=== PATIENT | male | born 1990 | race Caucasian/White ===

== ENCOUNTER 2025-04-29 17:39 | Emergency (ER) | payer OTHER, SELFPAY ==
--- OUTSIDE RECORDS SUMMARY | 2025-04-29 17:42 | XMS_ITS | Clinical Summary ---
Author Organization [facility] Address [address] [place] [address] Care Team Providers Care Planer Chain Offbearer Name Role Phone Sree Borjas P.A.-C. Primary Care Provider Source Comments Patient records contain information from all sites at [facility]. For routine questions regarding patient records, call [phone] during business hours, M-F 8:00 AM - 5:00 PM Central Time. Record requests for emergency care only can be directed to [phone] at any time.[facility] Allergies Active Allergy Reactions Criticality Noted Date Comments Lactose GI intolerance 04/21/2020 Medications * This document contains information received from the source organization and may not represent a complete record from that organization. No known medications Active Problems No known active problems Encounters * This document contains information received from the source organization and may not represent a complete record from that organization. Date Type Department Care Team Description 03/11/2025 Results Follow-Up Department of Family Medicine, [facility], in [place] [address] [place] [phone] Bebeto Fernández D.O. Home sleep apnea test (HSAT) 02/25/2025 7:50 AM CDT - 02/25/2025 11:59 PM CDT Hospital Encounter Department of Pulmonary Medicine in [place], [place] [address] [place] [phone] Bebeto Fernández D.O. Snoring Discharge Disposition: Home or Self Care 02/19/2025 3:20 PM CDT Telemedicine Department of [facility] Medicine, [facility], in [place], [place] [address] [place] [phone] Bebeto Fernández D.O. Snoring (Primary Dx) Discharge Disposition: Home or Self Care 02/19/2025 Clinical Communication Department of [facility] Medicine, [facility], in [place], [place] [address] [place] [phone] Sree Borjas P.A.-C. from Last 3 Months Immunizations Immunization Administration Dates Next Due Adenovirus 11/01/2011 Anthrax 01/05/2014, 4,12/23/2012,2012 HepA / HepB 06/30/2012,12/07/2011,11/01/2011 IPV 12/07/2011 Influenza, Injectable, Quadrivalent 04/16/2018 JE-VC (IXIARO) 12/08/2013,08/27/2012,07/29/2012 MCV4 (Menactra)(Discontinued) 11/01/2011 MMRV 12/07/2011 Smallpox 06/30/2012 Tdap 04/15/2020,11/01/2011 TyVi (inj) 07/29/2012 YF 12/07/2011 influenza LAIV (Nasal) (2 ye ars through 49 years) 02/15/2014,01/22/2013 influenza trivalent LAIV (Na isaias) (2 years through 49 years) 03/14/2012 influenza trivalent vaccine (6 months and older)(PF) 11/01/2011 influenza vaccine quad (FLUZONE/FLUARIX) (6 months and older)(PF) 04/15/2020 Family History Medical History Relation Name Comments Coronary artery disease Father Ishan Leal Diabetes Father Ishan Leal Myasthenia gravis Father Ishan Leal Obesity Father Ishan Leal Sleep apnea Father Ishan Leal Coronary artery disease Mother Sheila Leal Colon cancer Paternal Grandmother Guillermina Leal d before i was born. Relation Name Status Comments Father Ishan Leal Alive Mother Sheila Leal Alive Paternal Grandmother Guillermina Leal Alive Social History Tobacco Use Types Packs/Day Years Used Date Smoking Tobacco: Never Passive Smoke Exposure: Never Smokeless Tobacco: Never Alcohol Use Standard Drinks/Week Comments Not Currently 0 (1 standard drink = 0.6 oz pure alcohol) I've never been a big alcohol drinker but I haven't had a drink in 5 years. [facility] Utilities Answer Date Recorded In the past [address] [facility] [employer], gas, oil, or water [employer] threatened to shut off services in your home? No 08/20/2024 Humiliation, Afraid, Rape, and Kick questionnair e Answer Date Recorded Within the last year, have y ou been afraid of your partner or ex-partner? No 04/15/2020 Within the last year, have y ou been humiliated or emotionally abused in other ways by your partner or ex-partner? No Within the last year, have y ou been kicked, hit, slapped, or otherwise physically hurt by your partner or ex-partner? No 04/15/2020 Within the last year, have y ou been raped or forced to have any kind of sexual activity by your partner or ex-partner? No 04/15/2020 Hunger Vital Sign Answer Date Recorded Within the past 12 months, y ou worried that your food would run out before you got the money to buy more. Never true 08/21/19 25 Within the past 12 months, t he food you bought just didn't last and you didn't have money to get more. Never true 08/20/2024 PRAPARE - Transportation Answer Date Re corded In the past 12 months, has l ack of transportation kept you from medical appointments or from getting medications? No 08/02 In the past 12 months, has l ack of transportation kept you from meetings, work, or from getting things needed for daily living? No 08/20/2024 Housing Stability Answer Date Recorded What is your living situation today? I have a [facility] place to live 08/20/2024 Education Answer Date Recorded What is the highest level of school you have completed or the highest degree you have received? Associate degree: occupational, technical, or vocational program 04/15/2020 Sex and Gender Information Value Date Recorded Sex Assigned at Male 06/12/2021 8:28 AM COMMERCIAL SINGER Legal Sex Male 11:12 PM CDT Gender Identity Male 04/16/2020 9:28 PM COMMERCIAL SINGER Sexual Orientation Straight 04/16/2020 9: 28 PM COMMERCIAL SINGER Last Filed Vital Signs Vital Sign Reading Time Taken Comments Blood Pressure 135/81 11/13/2024 4:06 PM CDT Pulse 76 11/13/2024 4:06 PM CDT Temperature 36.1 C (97 F) 07/09/2024 10:21 AM COMMERCIAL SINGER Respiratory Rate 20 07/09/2024 10:21 AM COMMERCIAL SINGER Oxygen Saturation - - Inhaled Oxygen Concentration - - Weight 104 kg (229 lb 8 oz) 11/13/2024 4:06 PM C DT Height 180.5 cm (5' 11.06) 11/13/2024 4:06 PM C DT Body Mass Index 31.95 11/13/2024 4:06 PM CDT Plan of Treatment Health Maintenance Due Date Last Done Comments HIV Screening 1991 Hepatitis C Screening 1991 IPV Vaccines (2 of 3 - Adult catch-up series) 01/04/2012 12/07/2011 HPV Vaccines (1 - 3-dose SCDM series) 2018 COVID-19 Vaccine ( - 2024- season) 2025 Influenza Vaccine (#1) 2025 , 04/16/2018, 02/15/2014, Additional history exists DTaP,Tdap,and Td Vaccines (3 - Td or Tdap) 04/15/2030 04/15/2020, 11/01/2011 Hepatitis A Vaccines Completed 06/30/2012, 12/07/2011, 11/01/2011 Hepatitis B Vaccines Completed 06/30/2012, 12/07/2011, 11/01/2011 Orthopoxvirus Vaccine Completed 06/30/2012 Depression Screening (Annual PHQ-2) Completed 07/09/2024, 07/09/2024 Pneumococcal vaccine (0-49 years) Aged Out No longer eligible based on patient's age to complete this topic Procedures Procedure Name Priority Date/Time Associated Diagnosis Comments HOME SLEEP APNEA TEST (HSAT) Routine 02/25/2025 11:05 AM CDT Snoring from Last 3 Months Results * Home sleep apnea test (HSAT) (02/25/2025 11:05 AM CDT) Narrative ONBASE - 03/08/2025 2:58 PM CDT Summary: Home sleep apnea test was performed utilizing the WatchPAT device. The total recording time was 7 hours 59 minutes with an estimated total sleep time of 7 hours 6 minutes. The patient slept in all positions The total recording time was 7 hours 59 minutes with an estimated total sleep time of 7 hours 6 minutes. The overall pAHI 4% was 1 per hour. The pRDI was 7 per hour. The oxygen saturation leelee reached 90%. The mean oxygen saturation was normal at 94%. Snoring greater 40 dB was heard 45% of the time. Clinical interpretation: Primary snoring. Clinical recommendation: If the clinical suspicion for sleep disordered breathing remains high, consideration could be given to sleep medicine consultation and in laboratory overnight polysomnography study as home sleep apnea test could underestimate mild sleep disordered breathing. Bebeto Fernández D.O. SLEEP CENTER ORDERABLES Fi nal Result Performing Organization Address [facility] Co de Phone Number ONBASE NA from Last 3 Months Insurance [facility] Care Teams Planer Chain Offbearer Relationship Specialty Start Date End Date Sree Borjas P.A.-C. [address] [place] [phone] PCP - General Family Medicine 04/15/20
--- OUTSIDE RECORDS SUMMARY | 2025-04-29 17:42 | XMS_ITS | Encounter Summary ---
Author Organization [facility] Address [address] [place] [address] Care Team Providers Care Biology Instructor Name Role Phone Sree Borjas-CAnupama Primary Care Provider Encounter Details Date Type Department Care Team (Late st Contact Info) Description 02/19/2025 Clinical Communication Department of Family Medicine, [facility], in [place], [place] [address] [place] [phone] Sree Borjas P.A.-C. [address] [place] [phone] Social History Tobacco Use Types Packs/Day Years Used Date Smoking Tobacco: Never Passive Smoke Exposure: Never Smokeless Tobacco: Never Alcohol Use Standard Drinks/Week Comments Not Currently 0 (1 standard drink = 0.6 oz pure alcohol) I've never been a big alcohol drinker but I haven't had a drink in 5 years. [facility] Utilities Answer Date Recorded In the past 12 months has [employer], gas, oil, or water [employer] threatened to shut off services in your [...] your living situation today? I have a [facility] place to live 08/20/2024 Education Answer Date Recorded What is the highest level of school you have completed or the highest degree you have received? Associate degree: occupational, technical, or vocational program 04/15/2020 Sex and Gender Information Value Date Recorded Sex Assigned at Male 06/12/2021 8:28 AM RELATIONS MANAGER Legal Sex Male 11:12 PM CDT Gender Identity Male 04/16/2020 9:28 PM RELATIONS MANAGER Sexual Orientation Straight 04/16/2020 9: 28 PM RELATIONS MANAGER documented as of this encounter Miscellaneous Notes * Telephone Encounter - Lashae Hernández R.N. - 02/19/2025 11:23 AM CDT Left detailed message for patient to return call to clinic. Does the patient need to speak to nursing? no Action needed: Please assist patient in scheduling with PCP to discuss referral for sleep medicine. documented in this encounter Plan of Treatment Not on file documented as of this encounter Visit Diagnoses Not on filedocumented in this encounter Care Teams Biology Instructor Relationship Specialty Start Date End Date Sree Borjas P.A.-C. [address] [place] [phone] PCP - General Family Medicine 04/15/20 documented as of this encounter
--- OUTSIDE RECORDS SUMMARY | 2025-04-29 17:42 | XMS_ITS | Encounter Summary ---
Author Organization [facility] Address [address] [place] [id number] Care Team Providers Care Geological Aide Name Role Phone Sree Borjas P.A.-C. Primary Care Provider Encounter Details Date Type Department Care Team (Late st Contact Info) Description 03/11/2025 Results Follow-Up Department of Family Medicine, [facility], in [address] [phone] Bebeto Fernández D.O. [address] [place] [phone] Home sleep apnea test (HSAT) Social History Tobacco Use Types Packs/Day Years Used Date Smoking Tobacco: Never Passive Smoke Exposure: Never Smokeless Tobacco: Never Alcohol Use Standard Drinks/Week Comments Not Currently 0 (1 standard drink = 0.6 oz pure alcohol) I've never been a big alcohol drinker but I haven't had a drink in 5 years. [facility] Utilities Answer Date Recorded In the past 12 months has [employer], gas, oil, or water [employer] threatened to shut off services in your [...] your living situation today? I have a [facility] place to live 08/20/2024 Education Answer Date Recorded What is the highest level of school you have completed or the highest degree you have received? Associate degree: occupational, technical, or vocational program 04/15/2020 Sex and Gender Information Value Date Recorded Sex Assigned at Male 06/12/2021 8:28 AM CHEMISTRY QUALITY CONTROL TECHNICIAN Legal Sex Male 11:12 PM CDT Gender Identity Male 04/16/2020 9:28 PM CHEMISTRY QUALITY CONTROL TECHNICIAN Sexual Orientation Straight 04/16/2020 9: 28 PM CHEMISTRY QUALITY CONTROL TECHNICIAN documented as of this encounter Plan of Treatment Not on file documented as of this encounter Visit Diagnoses Not on filedocumented in this encounter Care Teams Geological Aide Relationship Specialty Start Date End Date Sree Borjas P.A.-C. YULI: [phone] [address] [place] [phone] PCP - General Family Medicine 04/15/20 documented as of this encounter
--- OUTSIDE RECORDS SUMMARY | 2025-04-29 17:42 | XMS_ITS | Clinical Summary ---
Author Organization [facility] Address [address] [place] [address] Care Team Providers Care Business Professor Name Role Phone Pcp, No Primary Care Provider Unavailabl e Allergies No known active allergies Medications methylPREDNISolone (Medrol (Avila)) 4 mg tabletIndications:Pain of right thumb,Sprain of metacarpophalangeal (MCP) joint of right thumb, initial encounter,Tendinitis of thumb,Right lateral epicondylitis Take by mouth as instructed per packaging. 21 Tablet 01/13/20 25 Active durable medical equipment (DME)Indications:Pain of right thumb,Sprain of metacarpophalangeal (MCP) joint of right thumb, initial encounter,Tendinitis of thumb,Right lateral epicondylitis Quick fit with thumb orthotic, universal, right 01/13/20 25 Active Encounters Date Type Department Care Team Description 03/12/2025 1:30 PM CDT Office Visit [facility] [address] [facility] [place] [phone] Jose Mckeon PA Elbow Pain/problem (right elbow MRI results) 03/12/2025 Travel 03/10/2025 2:00 PM CDT Ancillary Procedure [facility] [address] [facility] [address] [place] [address] 03/10/2025 Travel 03/04/2025 2:30 PM CDT Office Visit [facility] [address] [place] [phone] Jose Mckeon PA Follow Up (right thumb) 03/04/2025 Travel 02/27/2025 Travel from Last 3 Months Social History Tobacco Use Types Packs/Day Years Used Date Smoking Tobacco: Never Smokeless Tobacco: Never Alcohol Use Standard Drinks/Week Comments Never 0 (1 standard drink = 0.6 oz pur e alcohol) Sex and Gender Information Value Date Recorded Sex Assigned at Not on file Legal Sex Male 6:33 PM CDT Gender Identity Male 01/11/2025 9:11 PM CDT Sexual Orientation Straight 01/11/2025 9: 11 PM CDT Obstetrics History Last Filed Vital Signs Vital Sign Reading Time Taken Comments Blood Pressure 142/87 10/12/2019 7:11 PM CDT Pulse 80 10/12/2019 7:11 PM CDT Temperature 36.3 C (97.4 F) 10/12/2019 7:11 PM CDT Respiratory Rate 18 10/12/2019 7:11 PM CDT Oxygen Saturation 97% 10/12/2019 7:11 PM CDT Inhaled Oxygen Concentration - - Weight - - Height - - Body Mass Index - - Plan of Treatment Health Maintenance Due Date Last Done Comments Tetanus booster 2002 Depression screening for age 12+ 2003 HIV for age 15-65 2006 BMI (ht and wt on same day) for age 18+ 2009 Hepatitis C screening for ag e 18-79 2009 Hepatitis B series for 19+ ( 1 of 3 - 19+ 3-dose series) 2010 HPV series for age 9-45 (1 - 3-dose SCDM series) 2018 Influenza Vaccine (#1) 2025 RSV vaccine for adults or (1 - 1-dose 75+ series) 2066 Pneumococcal series for age 6-49 Aged Out No longer eligible based on patient's age to complete this topic Procedures Procedure Name Priority Date/Time Associated Diagnosis Comments MR ELBOW RIGHT WO Routine 03/10/2025 2:4 1 PM CDT Strain of biceps tendon, initial encounter Right elbow pain from Last 3 Months Results * MR ELBOW RIGHT WO CONTRAST (03/10/2025 2:41 PM CDT) Anatomical Region Laterality Modality ELBOW R Magnetic Resonan ce 03/11/2025 12:5 5 PM CDT Impressions 03/11/2025 12:55 PM CDT 1. Mild tendinosis of the distal biceps tendon, without significant tendon tear. 2. The elbow joint space and ligaments are maintained. 3. No fracture or stress change. Dictated by Vega Shipman MD @ 03/11/2025 12:55:31 PM (Electronically Signed) Narrative 03/11/2025 12:55 PM CDT For Patients: As a result of the Cures Act, medical imaging exams and procedure reports are released immediately into your electronic medical record. You may view this report before your referring provider. If you have questions, please contact your health care provider. CLINICAL INDICATION: Right elbow pain. Strain of biceps tendon. COMPARISON IMAGING STUDIES: No prior MRI. TECHNICAL: Non contrast MRI of the right elbow. Axial, sagittal and coronal T1, PD, PDFS and STIR images. 1.5 Jagruti MR scanner. FINDINGS: MYOTENDINOUS STRUCTURES: Triceps: Normal. Biceps: There is tendinosis of the distal biceps tendon. No significant tendon tear. Brachialis: No strain or tear. Supinator: No strain or tear. Common Extensor Tendon and Forearm Extensors: No tendon tear, tendinosis or muscle strain. Common Flexor Tendon and Forearm Flexors: No tendon tear, tendinosis or muscle strain. Accessory Anconeus: Not present. ELBOW JOINT: No effusion. No focal articular cartilage defect. No joint body. BONES: No fracture, marrow edema or marrow replacement process. LIGAMENTS: Ulnar Collateral: The ulnar collateral ligament is intact. Radial Collateral: The radial collateral ligament is intact. Lateral Ulnar Collateral: The lateral ulnar collateral ligament is intact. NERVES: Ulnar: Normal; without thickening, edema, mass or subluxation. Median: Normal. Radial: Normal. OTHER FINDINGS: There is no soft tissue mass or fluid collection. Procedure Note Vega Shipman MD - 03/11/2025 For Patients: As a result of the Cures Act, medical imagingexams and procedure reports are released immediately into your electronicmedical record. You may view this report before your referring provider.If you have questions, please contact your health care provider. CLINICAL INDICATION: Right elbow pain. Strain of biceps tendon. COMPARISON IMAGING STUDIES: No prior MRI. TECHNICAL: Non contrast MRI of the right elbow. Axial, sagittal and coronal T1, PD,PDFS and STIR images. 1.5 Jagruti MR scanner. FINDINGS: MYOTENDINOUS STRUCTURES: Triceps: Normal. Biceps: There is tendinosis of the distal biceps tendon. No significanttendon tear. Brachialis: No strain or tear. Supinator: No strain or tear. Common Extensor Tendon and Forearm Extensors: No tendon tear, tendinosisor muscle strain. Common Flexor Tendon and Forearm Flexors: No tendon tear, tendinosis ormuscle strain. Accessory Anconeus: Not present. ELBOW JOINT: No effusion. No focal articular cartilage defect. No joint body. BONES: No fracture, marrow edema or marrow replacement process. LIGAMENTS: Ulnar Collateral: The ulnar collateral ligament is intact. Radial Collateral: The radial collateral ligament is intact. Lateral Ulnar Collateral: The lateral ulnar collateral ligament isintact. NERVES: Ulnar: Normal; without thickening, edema, mass or subluxation. Median: Normal. Radial: Normal. OTHER FINDINGS: There is no soft tissue mass or fluid collection. IMPRESSION: 1. Mild tendinosis of the distal biceps tendon, without significant tendontear. 2. The elbow joint space and ligaments are maintained. 3. No fracture or stress change. Dictated by Vega Shipman MD @ 03/11/2025 12:55:31 PM (Electronically Signed) Jose NICOLAS MR Final Result from Last 3 Months Insurance [employer] Care Teams Business Professor Relationship Specialty Start Date End Date Pcp, No . PCP - General 10/12/19
[2025-04-29 17:49] VITALS: BP 140/94; PULSE 84; RESP 18; TEMP 36.4; O2SAT 99; BMI 29.5
--- NOTE | 2025-04-29 18:21 | ED.GENADULT ---
HPI - General Adult General Date Seen: 04/29/25 Chief complaint: Unspecified Complaint, Adult Stated complaint: Food stuck Time Seen by Provider: 04/29/25 17:43 History of Present Illness HPI narrative: Patient is a 35-year-old, generally healthy young man who presents for evaluation of food impaction. He says that he had a little bit of risk it and turkey, was not able to swallow saliva after that feels like there watch there. He says he has had trouble with this kind of thing for a while now, going on a year. He [facility] who prescribed omeprazole, he took that for a while and thought it maybe helped a little bit but it did not resolve the symptoms and so when he ran out of it he just did not refill it. He has never had any kind of endoscopy. He does not have any chest pain, has not been coughing up any blood. Has not been vomiting but is not able to swallow saliva and is spitting it up into a bag. Related Data Home Medications ?Medication ?Instructions ?Recorded ?Confirmed No Known Home Medications 04/29/25 04/29/25 Allergies Allergy/AdvReac Type Severity Reaction Status Date / Time No Known Drug Allergies Allergy Verified 01/07/25 14:54 Review of Systems Status of ROS: Reports: 6 or more systems reviewed and unremarkable except as noted in History and below [facility] Surgical History (Updated 01/07/25 @ 15:01 by Sulema Moise~[facility], [facility]) Left ACL tear ?S83.512A - Sprain of anterior cruciate ligament of left knee, initial encounter (ICD-10) S/P right rotator cuff repair ?Z98.890 - Other specified postprocedural states (ICD-10) Exam Narrative: Exam Narrative: Vital signs reviewed In general, alert, nontoxic male. Voice normal. Heart: Regular rate and rhythm. Lungs: Clear bilaterally. Abdomen: Soft and nontender. Const: Vital Signs, click to edit/add: Vital Signs - 24 hr 04/29/25 17:49 04/29/25 19:15 04/29/25 19:28 Temperature 97.5 F L Pulse Rate [Pulse Oximeter] 84 Respiratory Rate 18 Blood Pressure [Ri ght Upper Arm] 140/94 H 138/73 123/79 Pulse Oximetry 99 Oxygen Delivery Me thod Room Air Course Course ED Course: Patient presents with symptoms suggestive of food impaction. Will try a couple of things here to see if we can get that to pass, discussed with him if he needs intervention with endoscopy would need to transfer him to a different facility and he is agreeable to that. We tried pop rocks and glucagon and nitroglycerin with no effect. We do not have endoscopy here off hours, so I was able to talk with 1 of the ER doctors at [facility] and they are able to help with urgent endoscopy tonight. Discussed with patient and his and they are agreeable to that. I think it is reasonable to send him by private car, will leave the IV in place. He has no other concerns at this time, airways patent, denies significant pain or other concerns. Diagnosis: Esophageal food impaction Vital Signs Vital signs: Initial Vital Signs Temperature 97.5 F L 04/29/25 17:49 Temperature Source Temporal Artery Scan 04/29/25 17:49 Pulse Rate 84 04/29/25 17:49 Respiratory Rate 18 04/29/25 17:49 Blood Pressure 140/94 H 04/29/25 17:49 Blood Pressure Mean 109 H 04/29/25 17:49 Blood Pressure Position Sitting 04/29/25 17:49 Pulse Oximetry 99 04/29/25 17:49 Oxygen Delivery Method Room Air 04/29/25 17:49 Vital Signs Temperature 97.5 F L 04/29/25 17:49 Pulse Rate 84 04/29/25 17:49 Respiratory Rate 18 04/29/25 17:49 Blood Pressure 140/94 H 04/29/25 17:49 Pulse Oximetry 99 04/29/25 17:49 Oxygen Delivery Method Room Air 04/29/25 17:49 Temperature 97.5 F L 04/29/25 17:49 Pulse Rate 84 04/29/25 17:49 Respiratory Rate 18 04/29/25 17:49 Blood Pressure 123/79 04/29/25 19:28 Pulse Oximetry 99 04/29/25 17:49 Oxygen Delivery Method Room Air 04/29/25 17:49 Medications Administered Medications: Discontinued Medications Generic Name Dose Route Start Last Admin Trade Name Freq PRN Reason Stop Dose Admin Glucagon 1 mg 04/29/25 18:52 04/29/25 19:28 Glucagon,Human Recombinant 1 Mg/Ml Vial IV 04/29/25 18:53 1 mg ONCE ONE Administration Sodium Chloride 500 mls @ 500 mls/hr 04/29/25 18:52 04/29/25 19:50 0.9 % Sodium Chloride 500 Ml IV 04/29/25 19:51 Infused .Q1H ONE Infusion Nitroglycerin 0.4 mg 04/29/25 18:52 04/29/25 19:10 Nitroglycerin 0.4 Mg Tab.Subl SUBLINGUAL 04/29/25 18:53 0.4 mg ONCE ONE Administration Simethicone/Sodium Bicarb/Citric Ac 1 each 04/29/25 18:20 04/29/25 18:30 Simethicone/Sod Bicarb/Cit Ac 1 Each Gran.Ef.Pk PO 04/29/25 18:21 1 each ONCE ONE Administration Discharge Plan Discharge Clinical Impression: Food impaction of esophagus Patient Disposition: Xfer Other Condition: Unchanged Prescriptions: No Action No Known Home Medications
[2025-04-29] MEDS: SIMETHICONE/SOD BICARB/CIT AC 1 EACH GRAN.EF.PK PO (18:30)
[2025-04-29] MEDS: 0.9 % SODIUM CHLORIDE 500 ML 500 ML IV (19:10)
[2025-04-29] MEDS: NITROGLYCERIN 0.4 MG TAB.SUBL SUBLINGUAL (19:10)
[2025-04-29 19:15] VITALS: BP 138/73
[2025-04-29 19:28] VITALS: BP 123/79
[2025-04-29] MEDS: GLUCAGON,HUMAN RECOMBINANT 1 MG/ML VIAL IV (19:28)
== END 2025-04-29 20:06 | disposition other institution (70) ==
LOC: ED 18:23
PROVIDERS: Emergency Provider Emergency Medicine
DX: T18.128A Food in esophagus causing other injury, initial encounter (principal); W44.F3XA Food entering into or through a natural orifice, initial encounter
CPT/HCPCS: 96361; 96374; 99284; 99285; A9270; J1610; J7030